=== PATIENT | male | born 1985 | race Caucasian/White ===

== ENCOUNTER 2024-05-29 11:35 | Emergency (ER) | payer OTHER ==
[~2024-05-29] VITALS: Ht 188 cm; Wt 90.7 kg
[~2024-05-29 11:35] MED LIST: ESCI20 PO; LAMO100 PO
[2024-05-29 11:52] VITALS: BP 143/82
[2024-05-29] MEDS ORDERED: Acetaminophen 325 MG TABLET PO ONE (15:30)
== END 2024-05-29 16:09 | disposition home or self-care (01) ==
LOC: ER 11:35
DX: S93.402A Sprain of unspecified ligament of left ankle, initial encounter (principal); M25.521 Pain in right elbow; F11.10 Opioid abuse, uncomplicated; F17.200 Nicotine dependence, unspecified, uncomplicated; Z79.01 Long term (current) use of anticoagulants; Z79.899 Other long term (current) drug therapy; Z88.0 Allergy status to penicillin; W17.89XA Other fall from one level to another, initial encounter; Z86.59 Personal history of other mental and behavioral disorders
CPT/HCPCS: 73080; 73610; 99283-25

== ENCOUNTER 2024-06-21 02:16 | Emergency (ER) | payer OTHER ==
[~2024-06-21] VITALS: Ht 182.9 cm; Wt 72.6 kg
[2024-06-21 04:00] VITALS: BP 136/89
== END 2024-06-21 05:05 | disposition home or self-care (01) ==
LOC: ER 02:16
DX: R10.9 Unspecified abdominal pain (principal); R40.0 Somnolence; F15.90 Other stimulant use, unspecified, uncomplicated; F17.200 Nicotine dependence, unspecified, uncomplicated; Z79.899 Other long term (current) drug therapy; Z88.0 Allergy status to penicillin
CPT/HCPCS: 93005; 93010; 99284-25

== ENCOUNTER 2024-07-29 13:24 | Emergency (ER) | payer OTHER ==
[~2024-07-29] VITALS: Ht 182.9 cm; Wt 81.7 kg
[2024-07-29 14:32] VITALS: BP 126/85
[2024-07-29 14:52] LABS: BASOPHILS ABSOLUTE AUTO 0.21 K/mm3 (0.00-0.23); BASOPHILS PERCENT AUTO 2 % (0-2); EOSINOPHILS ABSOLUTE AUTO 1.05 K/mm3 (0.00-0.68); EOSINOPHILS PERCENT AUTO 8 % (0-6); Hemoglobin 13.4 g/dL (13.5-17.5); IMMATURE GRAN ABSOLUTE AUTO 0.05 K/mm3 (0.00-0.10); IMMATURE GRAN PERCENT AUTO 0 % (0-1); LYMPHOCYTES PERCENT AUTO 29 % (21-46); MONOCYTES ABSOLUTE AUTO 0.83 K/mm3 (0.16-1.47); MONOCYTES PERCENT AUTO 6 % (4-13); Mean Corpuscular HGB 28.4 pg (26.0-34.0); Mean Corpuscular HGB Conc 31.9 g/dL (31.5-36.5); Mean Corpuscular Volume 89 fL (80-100); NEUTROPHILS ABSOLUTE AUTO 7.13 K/mm3 (1.96-9.15); NEUTROPHILS PERCENT AUTO 55 % (41-73); Platelet Count 515 K/mm3 (150-400); RDW Coefficient Variation 14.6 % (11.7-14.2); RDW Standard Deviation 48.4 fL (35.1-46.3); Red Blood Cell Count 4.72 M/mm3 (4.30-5.90); White Blood Cell Count 13.07 K/mm3 (4.00-11.30)
[2024-07-29 15:24] LABS: Albumin/Globulin Ratio 0.8 (0.8-1.8); Bilirubin, Total 0.2 mg/dL (0.1-1.0); Bun/Creatinine Ratio 26.8 (12.0-20.0); Calcium, Blood 8.9 mg/dL (8.5-10.1); Creatinine, Blood 0.86 mg/dL (0.60-1.20); Globulin, Blood 3.9 g/dL (2.2-4.0); Potassium, Blood 4.4 mmol/L (3.5-5.5); Total Protein, Blood 6.9 g/dL (6.4-8.2)
[2024-07-29] MEDS ORDERED: Doxycycline Hyclate 100 MG TAB PO ONE (15:30)
[2024-07-29] MEDS ORDERED: DOXY100 PO (15:31)
== END 2024-07-29 15:47 | disposition home or self-care (01) ==
LOC: ER 13:24
PROVIDERS: Student in an Organized Health Care Education/Training Program
DX: L02.415 Cutaneous abscess of right lower limb (principal); Z59.89 Other problems related to housing and economic circumstances; Z88.0 Allergy status to penicillin; Z79.899 Other long term (current) drug therapy; F17.200 Nicotine dependence, unspecified, uncomplicated
CPT/HCPCS: 80053; 85025; 99283; A9270